=== PATIENT | male | born 2000 | race Caucasian/White ===

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

== ENCOUNTER 2022-06-04 12:51 | Emergency (ER) | payer OTHER, SELFPAY ==
[2022-06-04 12:52] VITALS: BP 128/86; PULSE 67; RESP 16; TEMP 36.3; O2SAT 97; BMI 23.0
--- NOTE | 2022-06-04 13:18 | EX.ED.GENINJ ---
HPI History of Present Illness Chief Complaint: Laceration Informant: patient, parent and EMS Narrative Narrative: 22-year-old male was at work today when a metal car parked came down causing laceration to the left wrist. EMS was called. He states that this Parpart was brand-new. He denies any paresthesias to the hand. He notes no change in tendon function of the hand. Bleeding was controlled. Tetanus Immunization: 5-10 years [facility] Home Medications NK 06/04/22 [History Last Taken Unknown] Allergy/AdvReac Type Severity Reaction Status Date / Time No Known Allergies Allergy Verified 06/04/22 12:57 Social History (Updated 06/04/22 @ 13:[address] Panchito Rogel, DO) Smoking Status: Never smoker substance use type: does not use ROS ROS ED Constitutional Constitutional ED: Denies chills or weight loss Eyes Eyes: Denies change in vision or diplopia ENT ENT ED: Denies ear pain, rhinorrhea or sore throat Cardiovascular Cardiovascular: Denies chest pain, orthopnea, palpitations or racing heartbeat Respiratory/Chest Respiratory/Chest: Denies cough, dyspnea or orthopnea Gastrointestinal Gastrointestinal: Denies abdominal pain, diarrhea, nausea or vomiting Genitourinary Genitourinary ED: Denies dysuria, hematuria or urinary frequency Musculoskeletal Musculoskeletal: Denies arthralgias or myalgias Integumentary Reports other Details: Laceration of wrist ; Denies abscess or rash Neurologic Neurologic: Denies headache(s) or weakness Psychiatric Psychiatric: Denies anxiety, depression, suicidal ideation or suicidal thoughts Endocrine Endocrinology: Denies polydipsia, polyphagia or polyuria Allergic/Immunologic Allergic/Immunologic ED: Denies mouth swelling, tongue swelling or urticaria EXAM Physical Exam Const Vital Signs: 06/04/22 12:52 Temperature 97.3 F L Temperature Source Oral Pulse Rate 67 Respiratory Rate 16 Blood Pressure 128/86 H Blood Pressure Mean 100 Pulse Ox 97 Oxygen Delivery Method Room Air Positive well nourished and well developed General Appearance ED: well developed HEENT Reports normocephalic, head/scalp atraumatic and moist mucous membranes Eyes PERRL and EOMs intact bilaterally Neck no lymphadenopathy, supple and no JVD Resp normal respiratory effort and clear to auscultation bilaterally Cardio regular rate, regular rhythm and no murmurs GI normal to inspection, nondistended, normoactive bowel sounds and non-tender Palpation: soft Back/Spine no CVA tenderness and normal ROM Extremity full ROM Extremity Narrative: There is a linear laceration of the volar aspect of the left wrist of about 3 cm in length. Just distal to this is a superficial linear abrasion with approximated wound edges. Bleeding is controlled. I do not appreciate any change of tendon, vascular or nerve function distally. General Extremety ED: Negative for edema General Extremity: Negative for edema Neuro oriented x3 and CN's II-XII intact bilaterally Sensorium / Orientation: alert Motor Exam: strength 5/5 throughout Psych mental status grossly normal Mood & Affect: Negative for depressed or tearful Skin no rashes or lesions noted and skin turgor normal MDM MDM MDM Narrative Medical decision making narrative: The wound was locally anesthetized using 1% lidocaine was washed with Shur-Clens and explored. 4-0 Ethilon sutures simple interrupted were placed with good wound edge approximation. The wound was then dressed with bacitracin and Telfa. Wound care discussed with patient stitches will need to be removed 7 to 10 days Discharge Plan Triage Chief Complaint: Laceration ED Provider: Panchito Rogel Dx/Rx/DC Orders Clinical Impression: Laceration of left wrist Instructions: ED Laceration Extremity Prescriptions: No Action NK Primary Care Provider: Ruel Durbin Referrals: Ruel Durbin MD [Primary Care Provider] - [facility] [Non-Staff] - 7 Days for suture removal Disposition Disposition: Home, Self Care
[2022-06-04 13:37] VITALS: BP 121/81; PULSE 62; RESP 16; O2SAT 98
[2022-06-04] MEDS: Lidocaine 1% (20 ml mdv) 20 ML Vial INFILT (13:43)
== END 2022-06-04 14:08 | disposition home or self-care (01) ==
PROVIDERS: Emergency Provider Emergency Medicine; PCP Family Medicine; Visit Provider Emergency Medicine
DX: S61.512A Laceration without foreign body of left wrist, initial encounter (principal); X58.XXXA Exposure to other specified factors, initial encounter
CPT/HCPCS: 12002; 99285

== ENCOUNTER → 2023-12-24 | Outpatient (CLI) | payer OTHER, SELFPAY ==
--- NOTE | 2023-12-24 14:42 | RAD_ITS ---
STUDY: X-RAY - RIGHT HAND, ATTENTION FIFTH FINGER REASON FOR EXAM: Male, 23 years old. Pain and swelling TECHNIQUE: 3 view(s) of the finger were obtained. COMPARISON: None. FINDINGS: Normal metacarpal head. Normal metacarpophalangeal joint. Normal proximal phalanx. Normal middle phalanx. Normal distal phalanx. Normal proximal interphalangeal joint. Normal distal interphalangeal joint. There is no demonstrated fracture. Soft tissues are intact. RAD/Finger(s) Min 2 Views IMPRESSION: Normal x-ray examination of the finger. Electronically Signed: Arias Campa MD at 22:31 EDT ,
== END | disposition home or self-care (01) ==
PROVIDERS: PCP Family Medicine; Referring Provider Family Medicine; Visit Provider Family Medicine
DX: M79.644 Pain in right finger(s) (principal)
CPT/HCPCS: 73140

== ENCOUNTER → 2025-07-01 | Outpatient (CLI) | payer OTHER, SELFPAY ==
--- NOTE | 2025-07-01 | CYST_PTH ---
PATIENT: JACINTA HO LOC: [facility] U#:[id number] AGE/SX: 25/M ROOM: RE07/01/[address]: Dr. Grady Davison MD : 2000 BED: DIS: 07/01/2025 SPEC #: [id number] RECD: 07/01/25 16:52 STATUS: LENI NEFTALY #: [id number] KIM: 07/01/25 00:[address]: Grady Davison DEPT: SURGICAL PATHOLOGY RECD BY: Nico Patel ENTERED: 07/02/25 09:57 SP TYPE: Cyst OTHR DR: Dr. Ruel Durbin MD Tissues: A - Eyebrow Procedures: Surgery Specimen Level III HEADER OPERATION: Excision right eyebrow cyst PRE-OP DIAGNOSIS: Eyebrow cyst TISSUE SUBMITTED: A- Right eyebrow cyst MICROSCOPIC DIAGNOSIS A. Skin, eyebrow, right, excision: * Epidermal inclusion cyst MICROSCOPIC DESCRIPTION Slides are reviewed. GROSS DESCRIPTION A. Received in formalin labeled the patient's name and date of is a 0.9 x 0.6 x 0.2 cm pink-anderson white disrupted cyst expelling white, grumous material and a 0.8 x 0.2 x 0.2 cm hairbearing elliptical portion of skin devoid of orientation. Entirely submitted in 1 cassette. MN 07/02/2025 CPT:26887
== END | disposition home or self-care (01) ==
LOC: LABSPEC 16:58
PROVIDERS: PCP Family Medicine; Referring Provider Surgery Plastic and Reconstructive Surgery; Visit Provider Surgery Plastic and Reconstructive Surgery
DX: L72.0 Epidermal cyst (principal)
CPT/HCPCS: 88304